=== PATIENT | female | born 1985 | race African-American/Black ===

== ENCOUNTER 2017-03-08 12:36 | Emergency (ER) | payer MEDICAID, OTHER ==
[~2017-03-08] VITALS: Ht 165.1 cm; Wt 61.0 kg
[2017-03-08 12:39] VITALS: BP 129/73; PULSE 65; RESP 16; TEMP 99.1; O2SAT 100
[2017-03-08 13:24] LABS: BASOPHIL % 0.7 % (0.0-2.0); EOSINOPHIL # 0.1 TH/MM3 (0-0.4); EOSINOPHIL % 1.2 % (0.0-4.0); HEMATOCRIT 39.3 % (35.0-46.0); HEMO FLAGS DIFF FINAL; LYMPH % 19.6 % (9.0-44.0); LYMPHOCYTE # 1.4 TH/MM3 (1.0-4.8); MEAN CELL VOLUME 93.1 FL (80.0-100.0); MEAN CORPUSCULAR HEMOGLOBIN 30.9 PG (27.0-34.0); MEAN CORPUSCULAR HGB CONC 33.2 % (32.0-36.0); MONO % 5.7 % (0.0-8.0); NEUT % 72.8 % (16.0-70.0); PLATELET COUNT 189 TH/MM3 (150-450); RED BLOOD COUNT 4.22 MIL/MM3 (4.00-5.30); RED CELL DISTRIBUTION WIDTH 12.8 % (11.6-17.2); WHITE BLOOD COUNT 6.9 TH/MM3 (4.0-11.0)
[2017-03-08 13:36] LABS: BLOOD, URINE NEG (NEG); GLUCOSE,URINE NEG (NEG); KETONE, URINE NEG (NEG); NITRITE,URINE NEG (NEG); SQUAMOUS EPITHELIAL CELL URINE 2 /hpf (0-5); URINE COLOR LIGHT-YELLOW (YELLW/STRAW)
[2017-03-08 13:37] LABS: ALT (GPT) 18 U/L (10-53); ANION GAP 7 MEQ/L (5-15); AST (GOT) 13 U/L (15-37); BICARBONATE 22.4 MEQ/L (21.0-32.0); BLOOD UREA NITROGEN 9 MG/DL (7-18); CHLORIDE 109 MEQ/L (98-107); GLOMERULAR FILTRATION RATE 109 ML/MIN (>89); POTASSIUM 4.1 MEQ/L (3.5-5.1); SODIUM (NA) 138 MEQ/L (136-145)
[2017-03-08 13:39] LABS: COMMENT (UR) CULT NOT INDICATED; CULTURE IF INDICATED CULT NOT INDICATED
[2017-03-08 13:41] LABS: ALKALINE PHOSPHATASE 50 U/L (45-117); BETA HCG QUANT 106 MIU/ML (0-5); TOTAL BILIRUBIN ADULT 0.8 MG/DL (0.2-1.0)
[2017-03-08 13:44] LABS: APTT (PATIENT) 29.9 SEC (24.3-30.1); INTERNATIONAL NORMALIZED RATIO 0.9 RATIO; PROTHROMBIN TIME - PATIENT 10.4 SEC (9.8-11.6)
--- NOTE | 2017-03-08 14:01 | PD ---
HPI Chief Complaint: Related Problem Time Seen by Provider: 13:42 Travel History International Travel<30 days: No Contact w/Intl Traveler<30days: No Traveled to known affect area: No History of Present Illness HPI This is a 31-year-old female who presents to the emergency department with lower abdominal cramping, constant, moderate severity that's been going on for several days associated with some scant spotting and some malodorous vaginal discharge. She reports a fever to 99.0. She went to an urgent care where incidentally she had a positive [id number] test so she was sent to the emergency department. She says her last menstrual cycle was a little over 4 weeks ago. She's had one which she carried to full-term. She's had 2 sexual partners in the past 6 months. . PFSH Past Medical History Medical History: Denies Significant Hx ?: Social History Tobacco Use: No Review of Systems Except as stated in HPI: all other systems reviewed are Neg Physical Exam Narrative GENERAL:Well appearing, no acute distress SKIN: Focused skin assessment warm and dry. HEAD: Atraumatic. Normocephalic. EYES: Pupils equal and round. No injection or drainage. ENT: Moist mucous membranes NECK: Trachea midline. CARDIOVASCULAR: Regular rate and rhythm. No murmur appreciated. RESPIRATORY: Clear to auscultation. Breath sounds equal bilaterally. GASTROINTESTINAL: Abdomen soft, mildly tender to palpation in the lower abdomen with no rebound or guarding. MUSCULOSKELETAL: No obvious deformities. NEUROLOGICAL: Awake and alert. No obvious cranial nerve deficits. Moving all extremities. PSYCHIATRIC: Appropriate mood and affect; insight and judgment normal. Data Data Last Documented VS Vital Signs Date Time Temp Pulse Resp B/P (MAP) Pulse Ox O2 Delivery O2 Flow Rate FiO2 03/08/17 12:39 99.1 65 16 129/73 (91) 100 Room Air Orders Orders Beta Hcg (Quant/Titer) (03/08/17 12:44) Complete Blood Count With Diff (03/08/17 12:44) Comprehensive Metabolic Panel (03/08/17 12:44) Prothrombin Time / Inr (Pt) (03/08/17 12:44) Act Partial Throm Time (Ptt) (03/08/17 12:44) Urinalysis - C+S If Indicated (03/08/17 12:44) Complete Rh (03/08/17 12:44) Gc And Chlamydia Pcr (03/08/17 12:44) Wet Prep Profile (03/08/17 13:49) Labs Laboratory Tests Test 03/08/17 12:50 03/08/17 12:55 03/08/17 14:00 White Blood Count 6.9 TH/MM3 Red Blood Count 4.22 MIL/MM3 Hemoglobin 13.0 GM/DL Hematocrit 39.3 % Mean Corpuscular Volume 93.1 FL Mean Corpuscular Hemoglobin 30.9 PG Mean Corpuscular Hemoglobin Concent 33.2 % Red Cell Distribution Width 12.8 % Platelet Count 189 TH/MM3 Mean Platelet Volume 9.3 FL Neutrophils (%) (Auto) 72.8 % Lymphocytes (%) (Auto) 19.6 % Monocytes (%) (Auto) 5.7 % Eosinophils (%) (Auto) 1.2 % Basophils (%) (Auto) 0.7 % Neutrophils # (Auto) 5.0 TH/MM3 Lymphocytes # (Auto) 1.4 TH/MM3 Monocytes # (Auto) 0.4 TH/MM3 Eosinophils # (Auto) 0.1 TH/MM3 Basophils # (Auto) 0.0 TH/MM3 CBC Comment DIFF FINAL Differential Comment Prothrombin Time 10.4 SEC Prothromb Time International Ratio 0.9 RATIO Activated Partial Thromboplast Time 29.9 SEC Blood Urea Nitrogen 9 MG/DL Creatinine 0.76 MG/DL Random Glucose 82 MG/DL Total Protein 7.7 GM/DL Albumin 3.6 GM/DL Calcium Level 8.4 MG/DL Alkaline Phosphatase 50 U/L Aspartate Amino Transf (AST/SGOT) 13 U/L Alanine Aminotransferase (ALT/SGPT) 18 U/L Total Bilirubin 0.8 MG/DL Sodium Level 138 MEQ/L Potassium Level 4.1 MEQ/L Chloride Level 109 MEQ/L Carbon Dioxide Level 22.4 MEQ/L Anion Gap 7 MEQ/L Estimat Glomerular Filtration Rate 109 ML/MIN Human Chorionic Gonadotropin, Quant 106 MIU/ML Urine Color LIGHT-YELLOW Urine Turbidity CLEAR Urine pH 7.0 Urine Specific [place] 1.008 Urine Protein NEG mg/dL Urine Glucose (UA) NEG mg/dL Urine Ketones NEG mg/dL Urine Occult Blood NEG Urine Nitrite NEG Urine Bilirubin NEG Urine Urobilinogen LESS THAN 2.0 MG/DL Urine Leukocyte Esterase NEG Urine WBC LESS THAN 1 /hpf Urine Squamous Epithelial Cells 2 /hpf Microscopic Urinalysis Comment CULT NOT INDICATED Clue Cells (Wet Prep) PRESENT Vaginal Trichomonas (Wet Prep) NONE SEEN Vaginal Yeast (Wet Prep) NONE SEEN MDM Medical Decision Making Medical Screen Exam Complete: Yes Emergency Medical Condition: Yes Interpretation(s) Afebrile, no tachycardia, normotensive no leukocytosis electrolytes within normal limits hcg 106 urinalysis: no infection clue cells on wet prep Differential Diagnosis Vaginosis, cervicitis, ectopic , threatened miscarriage, incomplete miscarriage, completed miscarriage Narrative Course This is a 31-year-old female who presents to the emergency department with some vaginal spotting and vaginal discharge. She was incidentally found to be early with a hCG of 106. Pelvic exam demonstrates copious white thin discharge consistent with bacterial vaginosis. She has some scant blood at the os. Blood type is Rh+. I discussed with the patient the importance of having a repeat hCG performed in 2 days to determine the nature of her abdominal pain. Patient expressed understanding. Diagnosis Primary Impression: Bacterial vaginosis Additional Impression: Bleeding in early Patient Instructions: General Instructions Additional Instructions: If you develop fever, chills, severe abdominal pain, persistent vomiting or inability to eat return to the emergency department. Your pelvic exam today did not include a Pap smear. It is important to followup with a rivet sorter on a yearly basis to be tested for cervical cancer as we do not do that from the emergency department. It is very important that you follow-up in 2 days for repeat hCG level. Med/Other Pt SpecificInfo: Prescription(s) given Scripts Metronidazole (Flagyl) 500 Mg Tab 500 MG PO BID for Infection for 7 Days, #14 TAB 0 Refills Prov: Traci Selby MD 03/08/17 Disposition: 01 DISCHARGE HOME Condition: Stable Traci Selby MD Mar 08, 2017 14:01
[2017-03-08] MEDS ORDERED: METR-1 PO (14:46)
[2017-03-08 15:13] VITALS: BP 124/78
[2017-03-08 16:09] LABS: CHLAMYDIA PCR NOT DETECTED (NOT DETECT); NEISSERIA PCR NOT DETECTED (NOT DETECT)
== END 2017-03-08 15:15 | disposition home or self-care (01) ==
LOC: NEPD 12:36
DX: O23.591 Infection of other part of genital tract in pregnancy, first trimester (principal); N76.0 Acute vaginitis; B96.89 Other specified bacterial agents as the cause of diseases classified elsewhere; O67.9 Intrapartum hemorrhage, unspecified; Z34.91 Encounter for supervision of normal pregnancy, unspecified, first trimester
CPT/HCPCS: 80053; 81001; 84702; 85025; 85610; 85730; 86901; 87210; 87491; 87591; 99284

== ENCOUNTER 2017-03-10 08:04 | Emergency (ER) | payer MEDICAID ==
[~2017-03-10] VITALS: Ht 165.1 cm; Wt 60.0 kg
[~2017-03-10 08:04] MED LIST: METR-1 PO
[2017-03-10 08:06] VITALS: BP 115/72; PULSE 63; RESP 15; TEMP 98.2; O2SAT 99
--- NOTE | 2017-03-10 08:21 | PD ---
HPI Chief Complaint: Related Problem Time Seen by Provider: 08:17 Travel History International Travel<30 days: No Contact w/Intl Traveler<30days: No Traveled to known affect area: No History of Present Illness HPI The patient is a female who presents emergency department for reevaluation and beta hCG. The patient has some lower abdominal discomfort and vaginal discharge several days ago and had an outpatient test that was positive. The patient was referred to the emergency department. The patient was seen on March 08, [address] Selby who performed a pelvic examination, wet prep that was positive for bacterial vaginosis, and a beta hCG that was 106. The patient is advised to return in 2- 3 days for reevaluation of BHCG. She does complain of some intermittent lower abdominal cramping discomfort that radiates to the back, however, the pain is not constant. First delivery was full-term vaginal, she denies any history of previous ectopic. Symptoms are mild, possibly exacerbated by underlying bacterial vaginosis and , and there are no current alleviating factors. The patient's first day last menstrual cycle was February 14, 2017. [facility] Past Medical History ?: LMP: 02/05/17 Social History Alcohol Use: No Tobacco Use: No Substance Use: No Allergies-Medications (Allergen,Severity, Reaction): Coded Allergies: No Known Allergies (Verified Allergy, Unknown, 03/10/17) Reported Meds & Prescriptions Reported Meds & Active Scripts Active Flagyl (Metronidazole) 500 Mg Tab 500 Mg PO BID 7 Days Review of Systems Except as stated in HPI: all other systems reviewed are Neg General / Constitutional: No: Fever Cardiovascular: No: Chest Pain or Discomfort Respiratory: No: Shortness of Breath Gastrointestinal: No: Nausea, Vomiting, Abdominal Pain Genitourinary: Positive: Pelvic Pain (intermittent lower abdominal/pelvic pain and cramping), Discharge, No: Dysuria, Vaginal Bleeding Physical Exam Narrative GENERAL: Awake, alert, pleasant 31 year-old female who appears her stated age and is in no acute respiratory distress. SKIN: Focused skin assessment warm/dry. HEAD: Atraumatic. Normocephalic. EYES: No injection or drainage. ENT: No nasal bleeding or discharge. Mucous membranes pink and moist. NECK: Trachea midline. No JVD. CARDIOVASCULAR: Regular rate and rhythm. No murmur appreciated. RESPIRATORY: No accessory muscle use. Clear to auscultation. Breath sounds equal bilaterally. GASTROINTESTINAL: Abdomen soft, no suprapubic tenderness. No rigidity or guarding. Back: No CVA tenderness. MUSCULOSKELETAL: No obvious deformities. No clubbing. No cyanosis. No edema. NEUROLOGICAL: Awake and alert. No obvious cranial nerve deficits. Motor grossly within normal limits. Normal speech. PSYCHIATRIC: Appropriate mood and affect; insight and judgment normal. Data Data Last Documented VS Vital Signs Date Time Temp Pulse Resp B/P (MAP) Pulse Ox O2 Delivery O2 Flow Rate FiO2 03/10/17 08:20 65 18 03/10/17 08:06 98.2 115/72 (86) 99 Orders Orders Beta Hcg (Quant/Titer) (03/10/17 08:17) Labs Laboratory Tests Test 03/10/17 08:25 Human Chorionic Gonadotropin, Quant 220 MIU/ML [facility] Medical Decision Making Medical Screen Exam Complete: Yes Emergency Medical Condition: Yes Medical Record Reviewed: Yes Interpretation(s) Laboratory Tests Test 03/10/17 08:25 Human Chorionic Gonadotropin, Quant 220 MIU/ML Differential Diagnosis Differential diagnoses includes , ectopic , threatened AB, bacterial vaginosis, vaginitis, cervicitis, PID, UTI. Narrative Course IV the patient's EMR visit from March 08, she had a beta hCG that was 106. Wet prep was positive for clue cells. Patient's pain is intermittent, abdominal exam is benign, there is no current vaginal bleeding. The patient may have early versus early ectopic versus threatened AB. Beta HCG was reevaluated. The patient's beta ACG is doubled from 106-220. The patient' s pain is intermittent, less likely to be ectopic at this stage with her symptoms. However, it is in the differential. The patient is advised to return if she has severe abdominal pain or vaginal bleeding, and to return on March 19 for repeat beta hCG and if her number is greater than [phone], I will perform an ultrasound at that time. The patient agrees and understands. She does understand she needs to return sooner if she has severe abdominal pain and bleeding. Diagnosis Primary Impression: Qualified Codes: Z34.90 - Encounter for supervision of normal , unspecified, unspecified trimester Patient Instructions: General Instructions Additional Instructions: Take a vitamin daily. Return if you have immediate sudden onset of pelvic pain and vaginal bleeding. Return on March 19 to be seen by myself in the emergency department for beta hCG and ultrasound. Return sooner for precautions as discussed. Med/Other Pt SpecificInfo: No Change to Meds Disposition: 01 DISCHARGE HOME Condition: Stable Buck Pimentel MD Mar 10, 2017 08:21
[2017-03-10 09:01] LABS: BETA HCG QUANT 220 MIU/ML (0-5)
== END 2017-03-10 09:41 | disposition home or self-care (01) ==
LOC: NEPE 08:04
DX: O26.892 Other specified pregnancy related conditions, second trimester (principal); R10.2 Pelvic and perineal pain; N89.8 Other specified noninflammatory disorders of vagina; Z34.92 Encounter for supervision of normal pregnancy, unspecified, second trimester
CPT/HCPCS: 84702; 99281

== ENCOUNTER 2017-03-19 09:02 | Emergency (ER) | payer MEDICAID ==
[~2017-03-19] VITALS: Ht 165.1 cm; Wt 62.0 kg
[2017-03-19 09:03] VITALS: BP 116/65; PULSE 69; RESP 14; TEMP 98.7; O2SAT 100
[2017-03-19 11:09] LABS: BETA HCG QUANT 5260 MIU/ML (0-5)
--- NOTE | 2017-03-19 12:18 | PD ---
HPI . Chief Complaint: Related Problem Time Seen by Provider: 10:01 Travel History International Travel<30 days: No Contact w/Intl Traveler<30days: No Traveled to known affect area: No History of Present Illness HPI 31-year-old female who is a presents emergency department for evaluation of current . Patient was seen at our facility on March 08 for bacterial vaginosis and discharged with a prescription for Flagyl. The patient returned for a repeat beta on March 10 and was seen by Dr. Pimentel. Dr. Pimentel's plan of care was to have her return on March 19, today and have a repeat beta and if the beta was over 2000 to perform an ultrasound. The patient denies any vaginal bleeding or discharge, abdominal cramping, fever or chills. Patient denies any major medical history and doesn't take any daily medication now that she has completed her Flagyl prescription. PFSH Past Medical History Medical History: Denies Significant Hx Diminished Hearing: No Influenza Vaccination: No ?: LMP: 02/02/17 Past Surgical History Surgical History: No Previous Surgery Social History Alcohol Use: No (OCCASIONALLY) Tobacco Use: No Substance Use: No Allergies-Medications (Allergen,Severity, Reaction): Coded Allergies: No Known Allergies (Verified Allergy, Unknown, 03/10/17) Reported Meds & Prescriptions Reported Meds & Active Scripts Active Flagyl (Metronidazole) 500 Mg Tab 500 Mg PO BID 7 Days Review of Systems Except as stated in HPI: all other systems reviewed are Neg Physical Exam Narrative GENERAL: Well-nourished, well-developed 31-year-old female patient in no acute distress. Nontoxic appearing. SKIN: Focused skin assessment warm/dry. HEAD: Normocephalic. Atraumatic. EYES: No scleral icterus. No injection or drainage. NECK: Supple, trachea midline. No JVD or lymphadenopathy. CARDIOVASCULAR: Regular rate and rhythm without murmurs, gallops, or rubs. RESPIRATORY: Breath sounds equal bilaterally. No accessory muscle use. GASTROINTESTINAL: Abdomen soft, non-tender, nondistended. MUSCULOSKELETAL: No cyanosis, or edema. BACK: Nontender without obvious deformity. No CVA tenderness. Data Data Last Documented VS Vital Signs Date Time Temp Pulse Resp B/P (MAP) Pulse Ox O2 Delivery O2 Flow Rate FiO2 03/19/17 09:03 98.7 69 14 116/65 (82) 100 Orders Orders Beta Hcg (Quant/Titer) (03/19/17 10:05) Us Pelvis (Ques Preg/Ectopic) (03/19/17 10:05) Labs Laboratory Tests Test 03/19/17 10:20 Human Chorionic Gonadotropin, Quant 5260 MIU/ML MDM Medical Decision Making Medical Screen Exam Complete: Yes Emergency Medical Condition: Yes Differential Diagnosis Differential diagnoses include but not limited to , threatened , ectopic Narrative Course Beta ordered and is well over 1999 at 5260. Ultrasound ordered and pending. Ultrasound shows 6 mm gestational sac with no pole identified. The findings of the ultrasound were discordant with the quantitative beta hCG value. The findings were discussed with the patient. The patient just recently moved to [place] and obtained [place] state insurance last week. Patient states she is in the process of finding an OB. We are going to provide names of OBs in the area and the patient states she is going to call them tomorrow and follow-up next week. Patient is discharged home with instructions to return the emergency Department with any worsening condition. Last Impressions Pelvis Ultrasound 03/19/17 1005 Signed Impressions: Service Date/Time: Sunday, March 19, 2017 11:37 - CONCLUSION: 1. Small, 6 mm gestational sac in the endometrial canal. No pole identified. Findings are discordant to the quantitative beta hCG value and therefore, this may represent a blighted ovum. Further anatomic detail is not available as the patient refused a transvaginal exam. 2. Complex 1.6 cm hypoechoic area in the left ovary may represent the corpus luteum. 3. Small amount of free fluid adjacent to the left adnexa. Marvin Torres MD Laboratory Tests Test 03/19/17 10:20 Human Chorionic Gonadotropin, Quant 5260 MIU/ML Diagnosis Primary Impression: Abnormal Qualified Codes: O26.91 - related conditions, unspecified, first trimester Referrals: Olga Lee MD, Tedra E. MD Modad, Patricia I. MD Patient Instructions: General Instructions Additional Instructions: Please return to emergency department if your symptoms return or worsen. Follow up with an PRINCIPAL MILITARY ANALYST next week. Disposition: 01 DISCHARGE HOME Condition: Stable Riya Woodward PLANT OPERATIONS WORKER Mar 19, 2017 12:18
--- NOTE | 2017-03-19 12:34 | RADRPT ---
EXAM DATE/TIME: 03/19/2017 11:37 [facility] COMPARISON: No previous studies available for comparison. INDICATIONS : Dating. LAB(S): Beta-hC MEDICAL HISTORY : . SURGICAL HISTORY : None. ENCOUNTER: Initial ACUITY: 1 day PAIN SCORE: 0/10 LOCATION: Bilateral pelvis MEASUREMENTS: UTERUS: 11.6 x 6.6 x 5.5 cm ENDOMETRIAL STRIPE: 17 mm RIGHT OVARY: 1.8 x 1.3 x 2.1 cm LEFT OVARY: 2.9 x 2.8 x 2.4 cm FREE FLUID: Yes adjacent to the lt ovary FINDINGS: UTERUS: The myometrium has homogeneous echotexture without mass. The gestational sac is identified measuring 6 x 5 x 8 mm. No pole was identified. Findings are discordant to the quantitative beta hCG carisa ue and therefore, findings may represent a blighted ovum. RIGHT OVARY: Ovary contains no mass or significant cystic lesion. LEFT OVARY: There appears to be a complex, 1.6 x 1.5 x 1.7 cm hypoechoic area in the lower pole of the left ovary . MISCELLANEOUS: Small amount of free fluid adjacent to the left adnexa. CONCLUSION: 1. Small, 6 mm gestational sac in the endometrial canal. No pole identified. Findings are disco rdant to the quantitative beta hCG value and therefore, this may represent a blighted ovum. Further a natomic detail is not available as the patient refused a transvaginal exam. 2. Complex 1.6 cm hypoechoic area in the left ovary may represent the corpus luteum. 3. Small amount of free fluid adjacent to the left adnexa. Marvin Torres MD on March 19, 2017 at 12:28 Board Certified Radiologist. This report was verified electronically.
== END 2017-03-19 14:01 | disposition home or self-care (01) ==
LOC: NEPD 09:02
DX: O26.891 Other specified pregnancy related conditions, first trimester (principal); R93.8 Abnormal findings on diagnostic imaging of other specified body structures; Z3A.00 Weeks of gestation of pregnancy not specified
CPT/HCPCS: 76700; 84702; 99284

== ENCOUNTER 2017-09-23 15:27 | Emergency (ER) | payer BC, MEDICAID ==
[2017-09-23 15:32] VITALS: BP 124/80; PULSE 74; RESP 16; TEMP 98.8
--- NOTE | 2017-09-23 16:19 | PD ---
HPI Chief Complaint: Abdominal Pain Time Seen by Provider: 15:41 Travel History International Travel<30 days: No Contact w/Intl Traveler<30days: No Traveled to known affect area: No History of Present Illness HPI 31-year-old with no significant medical history presents to the emergency department for evaluation of isolated incident of abdominal pain this afternoon during intercourse. Patient states the pain was severe and sharp and stabbing in her lower abdomen. She states this is never happened to her before. It did resolve on its own. Patient denies any vaginal bleeding or discharge. She reports no urinary symptoms. Patient is with a fairly new partner. She reports having sore throat for the last 2 weeks that did not resolve after amoxicillin. She states that she does perform oral sex on him. She denies any fever or chills. She denies any chest pain or tightness. No other recent illnesses. Patient has no other symptoms to report. PFSH Past Medical History Medical History: Denies Significant Hx Diminished Hearing: No Medical other: Yes (HPV) ?: Not LMP: 09/02/17 Past Surgical History Surgical History: No Previous Surgery Social History Alcohol Use: Yes (OCCASIONALLY) Tobacco Use: No Substance Use: No Allergies-Medications (Allergen,Severity, Reaction): Coded Allergies: No Known Allergies (Verified Allergy, Unknown, 09/23/17) Reported Meds & Prescriptions Reported Meds & Active Scripts Active No Active Prescriptions or Reported Medications Review of Systems Except as stated in HPI: all other systems reviewed are Neg Physical Exam Narrative GENERAL: Well-nourished female patient in no acute distress SKIN: Focused skin assessment warm/dry. HEAD: Atraumatic. Normocephalic. EYES: Pupils equal and round. No scleral icterus. No injection or drainage. ENT: No nasal bleeding or discharge. Mucous membranes pink and moist. Pharynx is with mild erythema. No significant exudate. Mild edema. NECK: Trachea midline. No JVD. CARDIOVASCULAR: Regular rate and rhythm. No murmur appreciated. RESPIRATORY: No accessory muscle use. Clear to auscultation. Breath sounds equal bilaterally. GASTROINTESTINAL: Abdomen soft, non-tender, nondistended. Hepatic and splenic margins not palpable. GENITOURINARY: Normal external genitalia without lesions or erythema. Vaginal vault without blood or drainage. Cervical os was closed, friable without drainage. Mild cervical motion tenderness. Uterus nontender and nonenlarged. Bilateral adnexa nontender without masses. MUSCULOSKELETAL: No obvious deformities. No clubbing. No cyanosis. No edema. NEUROLOGICAL: Awake and alert. No obvious cranial nerve deficits. Motor grossly within normal limits. Normal speech. PSYCHIATRIC: Appropriate mood and affect; insight and judgment normal. Data Data Last Documented VS Vital Signs Date Time Temp Pulse Resp B/P (MAP) Pulse Ox O2 Delivery O2 Flow Rate FiO2 09/23/17 15:32 98.8 74 16 124/80 (95) Orders Orders Group A Rapid Strep Screen (09/23/17 16:18) Urinalysis - C+S If Indicated (09/23/17 16:18) Wet Prep Profile (09/23/17 16:44) Gc And Chlamydia Pcr (09/23/17 16:44) Strep Culture (Group A) (09/23/17 16:40) Gc Culture Only (09/23/17 17:26) Ed Urine Pregnancytest Poc (09/23/17 17:42) Ceftriaxone Inj (Rocephin Inj) (09/23/17 18:00) Azithromycin (Zithromax) (09/23/17 18:00) Ed Discharge Order (09/23/17 18:11) Labs Laboratory Tests Test 09/23/17 16:40 09/23/17 16:56 Urine Color STRAW Urine Turbidity CLEAR Urine pH 6.0 Urine Specific [place] 1.003 Urine Protein NEG mg/dL Urine Glucose (UA) NEG mg/dL Urine Ketones NEG mg/dL Urine Occult Blood NEG Urine Nitrite NEG Urine Bilirubin NEG Urine Urobilinogen LESS THAN 2.0 MG/DL Urine Leukocyte Esterase NEG Urine Squamous Epithelial Cells 0-5 /hpf Urine Bacteria OCC /hpf Microscopic Urinalysis Comment CULT NOT INDICATED Clue Cells (Wet Prep) NONE SEEN Vaginal Trichomonas (Wet Prep) NONE SEEN Vaginal Yeast (Wet Prep) NONE SEEN Chlamydia trachomatis DNA (PCR) NOT DETECTED Neisseria gonorrhoeae DNA (PCR) NOT DETECTED MDM Medical Decision Making Medical Screen Exam Complete: Yes Emergency Medical Condition: Yes Medical Record Reviewed: Yes Differential Diagnosis Cervicitis versus UTI versus STD versus pharyngitis strep versus viral versus gonococcal Narrative Course 31-year-old female presents emergency department for evaluation. Patient appears without distress. She has mild cervical motion tenderness. Her cervix is friable. Patient has also had a sore throat for the last 2 weeks despite treatment of amoxicillin. This could likely be viral however I discussed the patient my attending physician and we will culture it for gonorrhea and chlamydia due to reported oral sex and a new partner. Patient is treated empirically. She will be discharged home. She agrees to return immediately with acute worsening symptoms. Laboratory Tests Test 09/23/17 16:40 09/23/17 16:56 Urine Color STRAW Urine Turbidity CLEAR Urine pH 6.0 Urine Specific [place] 1.003 Urine Protein NEG mg/dL Urine Glucose (UA) NEG mg/dL Urine Ketones NEG mg/dL Urine Occult Blood NEG Urine Nitrite NEG Urine Bilirubin NEG Urine Urobilinogen LESS THAN 2.0 MG/DL Urine Leukocyte Esterase NEG Urine Squamous Epithelial Cells 0-5 /hpf Urine Bacteria OCC /hpf Microscopic Urinalysis Comment CULT NOT INDICATED Clue Cells (Wet Prep) NONE SEEN Vaginal Trichomonas (Wet Prep) NONE SEEN Vaginal Yeast (Wet Prep) NONE SEEN Chlamydia trachomatis DNA (PCR) NOT DETECTED Neisseria gonorrhoeae DNA (PCR) NOT DETECTED Diagnosis Primary Impression: Cervicitis Additional Impressions: Dyspareunia Pharyngitis Qualified Codes: J02.9 - Acute pharyngitis, unspecified Referrals: Steam Powerplant Supervisor Primary Care Physician Patient Instructions: Cervicitis (ED), General Instructions Additional Instructions: Follow-up with your primary care provider See gynecology evaluation Return immediately with acute worsening of symptoms Med/Other Pt SpecificInfo: No Change to Meds Scripts No Active Prescriptions or Reported Meds Disposition: 01 DISCHARGE HOME Condition: Stable Neva Bernardo ELIANA September 23, 2017 16:19
[2017-09-23 17:08] LABS: BILIRUBIN, URINE NEG (NEG); BLOOD, URINE NEG (NEG); GLUCOSE,URINE NEG (NEG); KETONE, URINE NEG (NEG); NITRITE,URINE NEG (NEG); URINE LEUKOCYTE ESTERASE NEG (NEG)
[2017-09-23 17:20] LABS: BACTERIA, URINE OCC /hpf; SQUAMOUS EPITHELIAL CELL URINE 0-5 /hpf (0-5); URINE COLOR STRAW (YELLW/STRAW)
[2017-09-23] MEDS ORDERED: AZITHROMYCIN 250 MG TAB PO ONE (18:00)
[2017-09-23] MEDS ORDERED: cefTRIAXone 250 MG VIAL IM ONE (18:00)
--- NOTE | 2017-09-23 18:43 | PD ---
Physical Exam Date Seen by Provider: September 23, 2017 Time Seen by Provider: 18:00 Narrative I, Dr. Graff, have reviewed the advance practice practitioner's documentation and am in agreement, met with the patient face to face, made the diagnosis, and the medical decision making was done by me. *My assessment and Findings: Patient is seen and evaluated with nurse practitioner, please see nurse practitioner documentation for further details. Patient is here for pelvic pains after sex, she has been sexually active without condoms with a new partner. She also complains of recent sore throats. It was strep negative. Pelvic exam was equivocal, and considering history patient was treated for possible sexually transmitted diseases. She is not . Vital signs are stable in the ER. Wet prep is negative. She will need to follow-up with [employer] if symptoms continue. Return for worsening in pain or new symptoms as needed. The plan was discussed with her and she states understanding. Data Data Last Documented VS Vital Signs Date Time Temp Pulse Resp B/P (MAP) Pulse Ox O2 Delivery O2 Flow Rate FiO2 09/23/17 15:32 98.8 74 16 124/80 (95) Orders Orders Group A Rapid Strep Screen (09/23/17 16:18) Urinalysis - C+S If Indicated (09/23/17 16:18) Wet Prep Profile (09/23/17 16:44) Gc And Chlamydia Pcr (09/23/17 16:44) Strep Culture (Group A) (09/23/17 16:40) Gc Culture Only (09/23/17 17:26) Ed Urine Pregnancytest Poc (09/23/17 17:42) Ceftriaxone Inj (Rocephin Inj) (09/23/17 18:00) Azithromycin (Zithromax) (09/23/17 18:00) Ed Discharge Order (09/23/17 18:11) Labs Laboratory Tests Test 09/23/17 16:40 09/23/17 16:56 Urine Color STRAW Urine Turbidity CLEAR Urine pH 6.0 Urine Specific [place] 1.003 Urine Protein NEG mg/dL Urine Glucose (UA) NEG mg/dL Urine Ketones NEG mg/dL Urine Occult Blood NEG Urine Nitrite NEG Urine Bilirubin NEG Urine Urobilinogen LESS THAN 2.0 MG/DL Urine Leukocyte Esterase NEG Urine Squamous Epithelial Cells 0-5 /hpf Urine Bacteria OCC /hpf Microscopic Urinalysis Comment CULT NOT INDICATED Clue Cells (Wet Prep) NONE SEEN Vaginal Trichomonas (Wet Prep) NONE SEEN Vaginal Yeast (Wet Prep) NONE SEEN MDM Medical Record Reviewed: Yes Supervised Visit with JEANE: Yes Diagnosis Primary Impression: Cervicitis Additional Impressions: Dyspareunia Pharyngitis Qualified Codes: J02.9 - Acute pharyngitis, unspecified Referrals: [employer] Stock S[employer] Primary Care Physician Patient Instructions: General Instructions, Cervicitis (ED) Departure Forms: Tests/Procedures Additional Instruction: Follow-up with your primary care provider See gynecology evaluation Return immediately with acute worsening of symptoms Scripts No Active Prescriptions or Reported Meds Disposition: 01 DISCHARGE HOME Condition: Stable Noah Graff MD September 23, 2017 18:43
[2017-09-23] MEDS ORDERED: DICY10 PO (22:40)
[2017-09-23] MEDS ORDERED: ZOFR4TAB3 SL (22:40)
== END 2017-09-23 19:13 | disposition home or self-care (01) ==
LOC: NEPE 15:27
DX: N72 Inflammatory disease of cervix uteri (principal); N94.10 Unspecified dyspareunia; J02.9 Acute pharyngitis, unspecified
CPT/HCPCS: 81001; 84703; 87081; 87210; 87491; 87591; 87880; 96372; 99284; J0696

== ENCOUNTER 2017-09-23 20:55 | Emergency (ER) | payer SELFPAY ==
[2017-09-23 20:56] VITALS: BP 115/85; PULSE 79; RESP 18; TEMP 98.6; O2SAT 97
--- NOTE | 2017-09-23 21:10 | PD ---
HPI Chief Complaint: Abdominal Pain Time Seen by Provider: 21:06 Travel History International Travel<30 days: No Contact w/Intl Traveler<30days: No Traveled to known affect area: No History of Present Illness HPI 31-year-old female with no significant medical history presents emergency department for evaluation of epigastric pain, nausea, and diarrhea. Patient was seen and evaluated here earlier for dysparunia and a sore throat. She was treated with Rocephin and azithromycin. She was discharged home with a diagnosis of cervicitis and pharyngitis. Patient states about 20 minutes after discharge, she developed this epigastric pain and has had diarrhea since then. She states the pain is severe, constant, intermittently sharp and stabbing. She denies any abdominal surgeries. She has no other symptoms to report at this time. [facility] Past Medical History Medical History: Denies Significant Hx Diminished Hearing: No Immunizations Current: Yes ?: Not Past Surgical History Surgical History: No Previous Surgery Social History Alcohol Use: Yes (OCCASIONALLY) Tobacco Use: No Substance Use: No Allergies-Medications (Allergen,Severity, Reaction): Coded Allergies: No Known Allergies (Verified Allergy, Unknown, 09/23/17) Reported Meds & Prescriptions Reported Meds & Active Scripts Active No Active Prescriptions or Reported Medications Review of Systems Except as stated in HPI: all other systems reviewed are Neg Physical Exam Narrative GENERAL: Well-nourished female patient, no acute distress. SKIN: Focused skin assessment warm/dry. HEAD: Atraumatic. Normocephalic. EYES: Pupils equal and round. No scleral icterus. No injection or drainage. ENT: No nasal bleeding or discharge. Mucous membranes pink and moist. NECK: Trachea midline. No JVD. CARDIOVASCULAR: Regular rate and rhythm. No murmur appreciated. RESPIRATORY: No accessory muscle use. Clear to auscultation. Breath sounds equal bilaterally. GASTROINTESTINAL: Abdomen soft, nondistended. Epigastric tenderness to palpation. No guarding. No rebound tenderness.. Hepatic and splenic margins not palpable. MUSCULOSKELETAL: No obvious deformities. No clubbing. No cyanosis. No edema. NEUROLOGICAL: Awake and alert. No obvious cranial nerve deficits. Motor grossly within normal limits. Normal speech. PSYCHIATRIC: Appropriate mood and affect; insight and judgment normal. Data Data Last Documented VS Vital Signs Date Time Temp Pulse Resp B/P (MAP) Pulse Ox O2 Delivery O2 Flow Rate FiO2 5/19/18 20:56 98.6 79 18 115/85 (95) 97 Orders Orders Iv Access Insert/Monitor (09/23/17 21:09) Complete Blood Count With Diff (09/23/17 21:09) Comprehensive Metabolic Panel (09/23/17 21:09) Lipase (09/23/17 21:09) Sodium Chlor 0.9% 1000 Ml Inj (Ns 1000 M (09/23/17 21:15) Prochlorperazine Inj (Compazine Inj) (09/23/17 21:15) Diphenhydramine Inj (Benadryl Inj) (09/23/17 21:15) Ketorolac Inj (Toradol Inj) (09/23/17 21:15) Dicyclomine Inj (Bentyl Inj) (09/23/17 21:15) Ed Discharge Order (09/23/17 22:37) Labs Laboratory Tests Test 09/23/17 21:30 White Blood Count 9.9 TH/MM3 Red Blood Count 4.29 MIL/MM3 Hemoglobin 13.2 GM/DL Hematocrit 39.1 % Mean Corpuscular Volume 91.1 FL Mean Corpuscular Hemoglobin 30.6 PG Mean Corpuscular Hemoglobin Concent 33.6 % Red Cell Distribution Width 13.1 % Platelet Count 248 TH/MM3 Mean Platelet Volume 9.3 FL Neutrophils (%) (Auto) 71.6 % Lymphocytes (%) (Auto) 22.0 % Monocytes (%) (Auto) 4.9 % Eosinophils (%) (Auto) 1.1 % Basophils (%) (Auto) 0.4 % Neutrophils # (Auto) 7.1 TH/MM3 Lymphocytes # (Auto) 2.2 TH/MM3 Monocytes # (Auto) 0.5 TH/MM3 Eosinophils # (Auto) 0.1 TH/MM3 Basophils # (Auto) 0.0 TH/MM3 CBC Comment DIFF FINAL Differential Comment Blood Urea Nitrogen 9 MG/DL Creatinine 1.01 MG/DL Random Glucose 95 MG/DL Total Protein 8.2 GM/DL Albumin 3.9 GM/DL Calcium Level 9.2 MG/DL Alkaline Phosphatase 49 U/L Aspartate Amino Transf (AST/SGOT) 15 U/L Alanine Aminotransferase (ALT/SGPT) 21 U/L Total Bilirubin 1.0 MG/DL Sodium Level 143 MEQ/L Potassium Level 4.2 MEQ/L Chloride Level 105 MEQ/L Carbon Dioxide Level 26.9 MEQ/L Anion Gap 11 MEQ/L Estimat Glomerular Filtration Rate 78 ML/MIN Lipase 88 U/L [facility] Medical Decision Making Medical Screen Exam Complete: Yes Emergency Medical Condition: Yes Medical Record Reviewed: Yes Differential Diagnosis Gastritis versus pancreatitis versus cholecystitis versus medication adverse reaction versus influenza Narrative Course 31-year-old female presents emergency department for evaluation of epigastric pain, nausea, diarrhea, acute onset 20 minutes after discharge today. Patient appears without distress. Her vital signs are stable. She does have epigastric tenderness to palpation. IV access is established. Basic lab work is ordered and patient was treated for pain and nausea. Laboratory Tests Test 09/23/17 21:30 White Blood Count 9.9 TH/MM3 Red Blood Count 4.29 MIL/MM3 Hemoglobin 13.2 GM/DL Hematocrit 39.1 % Mean Corpuscular Volume 91.1 FL Mean Corpuscular Hemoglobin 30.6 PG Mean Corpuscular Hemoglobin Concent 33.6 % Red Cell Distribution Width 13.1 % Platelet Count 248 TH/MM3 Mean Platelet Volume 9.3 FL Neutrophils (%) (Auto) 71.6 % Lymphocytes (%) (Auto) 22.0 % Monocytes (%) (Auto) 4.9 % Eosinophils (%) (Auto) 1.1 % Basophils (%) (Auto) 0.4 % Neutrophils # (Auto) 7.1 TH/MM3 Lymphocytes # (Auto) 2.2 TH/MM3 Monocytes # (Auto) 0.5 TH/MM3 Eosinophils # (Auto) 0.1 TH/MM3 Basophils # (Auto) 0.0 TH/MM3 CBC Comment DIFF FINAL Differential Comment Blood Urea Nitrogen 9 MG/DL Creatinine 1.01 MG/DL Random Glucose 95 MG/DL Total Protein 8.2 GM/DL Albumin 3.9 GM/DL Calcium Level 9.2 MG/DL Alkaline Phosphatase 49 U/L Aspartate Amino Transf (AST/SGOT) 15 U/L Alanine Aminotransferase (ALT/SGPT) 21 U/L Total Bilirubin 1.0 MG/DL Sodium Level 143 MEQ/L Potassium Level 4.2 MEQ/L Chloride Level 105 MEQ/L Carbon Dioxide Level 26.9 MEQ/L Anion Gap 11 MEQ/L Estimat Glomerular Filtration Rate 78 ML/MIN Lipase 88 U/L Lab work is reviewed and without acute concern. I discussed the patient my attending physician. Imaging studies are not warranted at this time. Patient' s pain has nearly resolved upon reassessment. She will be discharged home with additional pain control. She is encouraged to follow-up with primary care provider and return immediately with acute worsening symptoms. Diagnosis Primary Impression: Abdominal cramping Additional Impressions: Diarrhea Qualified Codes: R19.7 - Diarrhea, unspecified Nausea Referrals: Primary Care Physician Patient Instructions: Diet for Stomach Ulcers and Gastritis (ED), General Instructions Departure Forms: Tests/Procedures, Work Release Enter return to work date: October 03, 2017 Additional Instructions: Alexander diet May consider starting with clear liquids and advancing as tolerated Follow-up with a primary care provider Return immediately with acute worsening symptoms Med/Other Pt SpecificInfo: Prescription(s) given Scripts Ondansetron Odt (Zofran Odt) 4 Mg Tab 4 MG SL Q8HR Y for Nausea/Vomiting, #10 TAB 0 Refills Prov: Neva Bernardo 09/23/17 Dicyclomine (Bentyl) 10 Mg Cap 10 MG PO TID Y for Bowel Management, #15 CAP 0 Refills Prov: Neva Bernrado 09/23/17 Disposition: 01 DISCHARGE HOME Condition: Stable Neva Bernardo September 23, 2017 21:10
[2017-09-23] MEDS ORDERED: DICYCLOMINE HCL 20 MG/2 ML VIAL IM ONE (21:15)
[2017-09-23] MEDS ORDERED: SODIUM CHLOR 0.9% 1000 ML INJ 1,000 ML IV ONE (21:15)
[2017-09-23] MEDS ORDERED: diphenhydrAMINE HCL 50 MG/ML VIAL IV PUSH ONE (21:15)
[2017-09-23] MEDS ORDERED: PROCHLORPERAZINE INJ 10 MG/2 ML VIAL IV PUSH ONE (21:15)
[2017-09-23] MEDS ORDERED: KETOROLAC TROMETHAMINE 30 MG/ML (IVP) VIAL IV PUSH ONE (21:15)
[2017-09-23 22:15] LABS: AUTOMATED NEUTROPHIL # 7.1 TH/MM3 (1.8-7.7); BASOPHIL % 0.4 % (0.0-2.0); EOSINOPHIL # 0.1 TH/MM3 (0-0.4); EOSINOPHIL % 1.1 % (0.0-4.0); HEMATOCRIT 39.1 % (35.0-46.0); HEMOGLOBIN 13.2 GM/DL (11.6-15.3); LYMPHOCYTE # 2.2 TH/MM3 (1.0-4.8); MEAN CELL VOLUME 91.1 FL (80.0-100.0); MEAN CORPUSCULAR HEMOGLOBIN 30.6 PG (27.0-34.0); MEAN CORPUSCULAR HGB CONC 33.6 % (32.0-36.0); MEAN PLATELET VOLUME 9.3 FL (7.0-11.0); MONO % 4.9 % (0.0-8.0); MONOCYTE # 0.5 TH/MM3 (0-0.9); NEUT % 71.6 % (16.0-70.0); PLATELET COUNT 248 TH/MM3 (150-450); RED BLOOD COUNT 4.29 MIL/MM3 (4.00-5.30); RED CELL DISTRIBUTION WIDTH 13.1 % (11.6-17.2); WHITE BLOOD COUNT 9.9 TH/MM3 (4.0-11.0)
[2017-09-23 22:27] LABS: ALBUMIN 3.9 GM/DL (3.4-5.0); AST (GOT) 15 U/L (15-37); BICARBONATE 26.9 MEQ/L (21.0-32.0); BLOOD UREA NITROGEN 9 MG/DL (7-18); CALCIUM 9.2 MG/DL (8.5-10.1); CHLORIDE 105 MEQ/L (98-107); CREATININE 1.01 MG/DL (0.50-1.00); GLOMERULAR FILTRATION RATE 78 ML/MIN (>89); GLUCOSE,RANDOM 95 MG/DL (74-106); SODIUM (NA) 143 MEQ/L (136-145)
[2017-09-23 22:30] LABS: ALKALINE PHOSPHATASE 49 U/L (45-117); ALT (GPT) 21 U/L (10-53); TOTAL PROTEIN 8.2 GM/DL (6.4-8.2)
[2017-09-23] MEDS ORDERED: ZOFR4TAB3 SL (22:40)
[2017-09-23] MEDS ORDERED: DICY10 PO (22:40)
== END 2017-09-23 23:06 | disposition home or self-care (01) ==
LOC: NEPC 20:55
DX: R10.9 Unspecified abdominal pain (principal); R19.7 Diarrhea, unspecified; R11.0 Nausea; N72 Inflammatory disease of cervix uteri; J02.9 Acute pharyngitis, unspecified
CPT/HCPCS: 80053; 83690; 85025; 96361; 96372; 96374; 96375; 99284; J0500; J0780; J1200; J1885; J7030